=== PATIENT | female | born 1990 ===

== ENCOUNTER 2018-02-09 21:04 | Emergency (ER) | payer BC, MEDICAID, OTHER ==
[2018-02-09 21:05] VITALS: BMI 35.4
[2018-02-09] MEDS ORDERED: Sodium Chloride 0.9% 1,000 ML IV ONE (21:54)
--- NOTE | 2018-02-09 21:59 | C.PDOC ---
History Of Present Illness 27 y/o female presents to the ED complaining of epigastric pain that has been on and off for the past couple weeks. Patient states she was evaluated in the ED at [facility] in December, and told symptoms were related to her gall bladder. She was evaluated again last week, given something through the IV, and discharged home. The pain is now radiating into her back. Patient reports feeling nauseous, with chills. Otherwise she denies any vomiting, diarrhea, chest pain, SOB, or fever. Of note, patient is s/p gastric sleeve in 09/2017. Time Seen by Provider: 02/09/18 21:33 Chief Complaint (Nursing): Abdominal Pain History Per: Patient History/Exam Limitations: no limitations Onset/Duration Of Symptoms: Intermittent Episodes Current Symptoms Are (Timing): Still Present Location Of Pain/Discomfort: Epigastric Associated Symptoms: Chills, Nausea Past Medical History Reviewed: Historical Data, Nursing Documentation, Vital Signs Vital Signs: Last Vital Signs Temp 97.9 F 02/09/18 21:09 Pulse 69 02/09/18 21:09 Resp 18 02/09/18 21:09 BP 114/70 02/09/18 21:09 Pulse Ox 100 02/09/18 21:09 - Medical History PMH: Asthma, Depression, Pneumonia (05/24) Denies: HIV, Chronic Kidney Disease - [facility] Procedures EXCISION OF DUODENUM, ENDO, DIAGN (12/10/17) EXCISION OF STOMACH, ENDO, DIAGN (12/10/17) INDIVID PSYCHOTHERAP NEC (07/03/13) INTRODUCTION OF SERUM/TOX/VACCINE INTO MUSCLE, PERC APPROACH (12/10/17) OTHER GROUP THERAPY (07/03/13) Family History: States: Unknown Family Hx - Social History Hx Tobacco Use: Yes Hx Alcohol Use: No (denies) Hx Substance Use: No (denies) - Immunization History Hx Tetanus Toxoid Vaccination: No Hx Influenza Vaccination: Yes (2017) Hx Pneumococcal Vaccination: No Review Of Systems Constitutional: Positive for: Chills. Negative for: Fever Cardiovascular: Negative for: Chest Pain Respiratory: Negative for: Shortness of Breath Gastrointestinal: Positive for: Nausea, Abdominal Pain (epigastric). Negative for: Vomiting, Diarrhea, Hematochezia Physical Exam - Physical Exam Appears: Non-toxic, Other (Appears uncomfortable) Skin: Warm, Dry Head: Atraumatic, Normacephalic Eye(s): bilateral: Normal Inspection, PERRL, EOMI Oral Mucosa: Moist Neck: Normal ROM Chest: Symmetrical Cardiovascular: Rhythm Regular, No Murmur Respiratory: Normal Breath Sounds, No Rales, No Rhonchi, No Wheezing Gastrointestinal/Abdominal: Bowel Sounds (normal), Soft, Tenderness (to the epigastrium), No Distention, No Rebound Back: No CVA Tenderness Extremity: Bilateral: Atraumatic, Normal Color And Temperature Neurological/Psych: Oriented x3, Normal Speech ED Course And Treatment - Laboratory Results Result Diagrams: 02/09/18 22:27 02/09/18 22:27 O2 Sat by Pulse Oximetry: 100 (RA) Pulse Ox Interpretation: Normal Medical Decision Making Medical Decision Making: Initial Plan: --Blood work --Urinalysis --Urine HCG --IV fluids --Zofran 4 mg IVP --Morphine 2 mg IVP 23:25 - patient states she still in pain more morphine will ordered, discussed work up results with patient including her elevated AST and ALTs. Patient failed to mention initially she was seen 3 days ago and since then her AST/ALT have increased significantly. US scan ordered. 00:56 - Patient still complaining of pain, toradol was given. Patient will be signed out to Dr. Ayon pending US and reevaluation. Disposition Counseled Patient/Family Regarding: Studies Performed, Diagnosis - Disposition Disposition Time: 01:07 Condition: FAIR Forms: [facility] (Danish) - Clinical Impression Clinical Impression: Abdominal pain - Scribe Statement The provider has reviewed the documentation as recorded by the Wilbur Palacios Provider Attestation: All medical record entries made by the Vaneibjustine were at my direction and personally dictated by me. I have reviewed the chart and agree that the record accurately reflects my personal performance of the history, physical exam, medical decision making, and the department course for this patient. I have also personally directed, reviewed, and agree with the discharge instructions and disposition. Physician Patient Turnover Patient Signed Over To: Shine Ayon Handoff Comments: Pending US
[2018-02-09] MEDS ORDERED: Sodium Chloride 0.9% 1,000 ML ONE (22:13)
[2018-02-09 22:33] LABS: BASO % 0.5 % (0.0-2.0); EOS # 0.2 K/uL (0.0-0.7); EOS % 1.9 % (0.0-4.0); HEMOGLOBIN 14.2 g/dL (11.0-16.0); LYMPH # 1.3 K/uL (1.0-4.3); LYMPH % 15.8 % (20.0-40.0); MEAN CELL VOLUME 90.1 fL (81.0-99.0); MEAN CORPUSCULAR HEMOGLOBIN 30.1 pg (27.0-31.0); MEAN CORPUSCULAR HGB CONC 33.4 g/dL (33.0-37.0); MEAN PLATELET VOLUME 8.2 fL (7.2-11.7); MONO # 0.4 K/uL (0.0-0.8); MONO % 5.2 % (0.0-10.0); NEUT # 6.3 K/uL (1.8-7.0); NEUT % 76.6 % (50.0-75.0); NRBC % 0.1 % (0.0-2.0); RBC 4.72 Mil/uL (3.80-5.20); RED CELL DISTRIBUTION WIDTH 14.5 % (11.5-14.5); WHITE BLOOD COUNT 8.2 K/uL (4.8-10.8)
[2018-02-09 22:44] LABS: ALB/GLOB RATIO 1.4 (1.0-2.1); ALBUMIN 4.4 g/dL (3.5-5.0); ALT/SGPT 315 U/L (9-52); AST/SGOT 380 U/L (14-36); BLOOD UREA NITROGEN 10 mg/dL (7-17); CALCIUM 9.4 mg/dl (8.6-10.4); GFR NON-AFRICAN AMERICAN > 60; LIPASE 96 U/L (23-300)
[2018-02-09 22:53] LABS: SQUAMOUS EPITHIAL 8 /hpf (0-5); URINE BACTERIA RARE (<OCC); URINE BILIRUBIN NEGATIVE (NEGATIVE); URINE BLOOD NEGATIVE (NEGATIVE); URINE CLARITY Clear (Clear); URINE COLOR Amber (YELLOW); URINE GLUCOSE (UA) NORMAL (Normal); URINE HYALINE CAST 0-2 /lpf (0-2); URINE LEUKOCYTE ESTERASE NEG Leu/uL (Negative); URINE PROTEIN NEGATIVE (NEGATIVE)
[2018-02-09 22:56] LABS: HCG,QUALITATIVE URINE NEGATIVE (NEGATIVE)
[2018-02-10] MEDS ORDERED: Iodixanol 320 MG/ML 100 ML BOTTLE IV ONE (00:02)
[2018-02-10 03:37] VITALS: BP 118/77; PULSE 68; RESP 22; TEMP 98.2; O2SAT 98
--- NOTE | 2018-02-10 10:27 | US ---
Date of service: 02/10/2018 HISTORY: abd pain COMPARISON: The preliminary findings for this examination were reported by [facility] at 3:22 a.m. on 02/10/2018. There is concurrence of this report with the preliminary findings. TECHNIQUE: Sonographic evaluation of the abdomen. FINDINGS: LIVER: Measures 17.6 cm. Diffusely increased echogenicity of the liver parenchyma. Consistent with fatty infiltration. Smooth contour. No mass. No intrahepatic biliary ductal dilatation. GALLBLADDER: Cholelithiasis. No mural thickening. No pericholecystic fluid. Negative sonographic Owen sign. COMMON BILE DUCT: Measures 7 mm. This is just above the normal range though on accompanied by intrahepatic biliary dilatation. Please correlate with laboratory evaluation for possible biliary obstruction. PANCREAS: Unremarkable as visualized. No mass. No ductal dilatation. RIGHT KIDNEY: Measures 12.1cm. Normal echogenicity. No calculus, mass, or hydronephrosis. LEFT KIDNEY: Measures 10.7cm. Normal echogenicity. No calculus, mass, or hydronephrosis. SPLEEN: Normal in size and contour. No mass. AORTA: No aneurysmal dilatation. IVC: Unremarkable. OTHER FINDINGS: None. IMPRESSION: Fatty infiltration of the liver. Cholelithiasis without evidence of cholecystitis. Minimally dilated common bile duct of uncertain significance without associated intrahepatic biliary dilatation. Correlate with laboratory evaluation for possible biliary obstruction.
== END 2018-02-10 03:43 | disposition home or self-care (01) ==
LOC: SUPCPDRO 21:04 → C.ER 21:04
DX: K80.80 Other cholelithiasis without obstruction (principal); R94.5 Abnormal results of liver function studies; R10.9 Unspecified abdominal pain
CPT/HCPCS: 76700; 80053; 81001; 83690; 84703; 85025; 96361; 96374; 96375; 96376; 99284; J1885; J2270; J2405; J7030

== ENCOUNTER 2018-06-11 14:10 | Emergency (ER) | payer OTHER, MEDICAID | END 2018-06-11 15:28 | disposition home or self-care (01) | LOC: C.ER 14:10 ==

== ENCOUNTER 2018-07-20 00:16 | Emergency (ER) | payer MEDICAID, OTHER ==
[2018-07-20 00:30] VITALS: BMI 29.0
--- NOTE | 2018-07-20 00:55 | C.PDOC ---
History Of Present Illness 28 year old female presents with left flank pain radiating to the left lower abdomen. She also reports some constipation, last bowel movement was this morning with a lot of straining. Denies nausea, vomiting, or diarrhea. LMP was one week ago. Time Seen by Provider: 07/20/18 00:35 Chief Complaint (Nursing): Abdominal Pain History Per: Patient History/Exam Limitations: no limitations Onset/Duration Of Symptoms: Days Current Symptoms Are (Timing): Still Present Location Of Pain/Discomfort: Other (Left flank radiating to left lower abdomen) Quality Of Discomfort: Unable To Describe Associated Symptoms: Constipation. denies: Nausea, Vomiting, Diarrhea Exacerbating Factors: None Alleviating Factors: None Recent travel outside of the [place]: No Past Medical History Reviewed: Historical Data, Nursing Documentation, Vital Signs Vital Signs: Last Vital Signs Temp 98.3 F 07/20/18 00:30 Pulse 64 07/20/18 00:30 Resp 18 07/20/18 00:30 BP 111/72 07/20/18 00:30 Pulse Ox 100 07/20/18 00:30 - Medical History PMH: Asthma, Depression, Pneumonia (05/24) Denies: HIV, Chronic Kidney Disease - [facility] Procedures EXCISION OF DUODENUM, ENDO, DIAGN (12/10/17) EXCISION OF STOMACH, ENDO, DIAGN (12/10/17) INDIVID PSYCHOTHERAP NEC (07/03/13) INTRODUCTION OF SERUM/TOX/VACCINE INTO MUSCLE, PERC APPROACH (12/10/17) OTHER GROUP THERAPY (07/03/13) Family History: States: Unknown Family Hx - Social History Hx Tobacco Use: Yes Hx Alcohol Use: Yes (denies) Hx Substance Use: No (denies) - Immunization History Hx Tetanus Toxoid Vaccination: No Hx Influenza Vaccination: Yes (2018) Hx Pneumococcal Vaccination: No Review Of Systems Constitutional: Negative for: Fever, Chills Gastrointestinal: Positive for: Abdominal Pain (Left), Constipation. Negative for: Nausea, Vomiting, Diarrhea Genitourinary: Negative for: Dysuria, Hematuria Musculoskeletal: Positive for: Other (Left flank pain) Physical Exam - Physical Exam Appears: Non-toxic Skin: Normal Color, Warm Head: Atraumatic, Normacephalic Eye(s): bilateral: Normal Inspection Oral Mucosa: Moist Gastrointestinal/Abdominal: Soft, No Tenderness, Other (Multiple old small incision scars) Back: No CVA Tenderness Neurological/Psych: Oriented x3, Normal Speech ED Course And Treatment O2 Sat by Pulse Oximetry: 100 (Room air) Pulse Ox Interpretation: Normal - Other Rad Obstructive series X-Ray: Interpreted by Me, Viewed By Me Interpretation: Moderate stool, surgical sutures seen. Progress Note: Obstructive series and UA ordered, results were negative. Patient is resting comfortably in no acute distress, vitals are stable, will discharge with Rx and instructions to follow up with PMD. 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 - Scribe Statement The provider has reviewed the documentation as recorded by the Scribjustine Cavazos All medical record entries made by the Vaneibjustine were at my direction and personally dictated by me. I have reviewed the chart and agree that the record accurately reflects my personal performance of the history, physical exam, me dical decision making, and the department course for this patient. I have also personally directed, reviewed, and agree with the discharge instructions and disposition.
[2018-07-20 01:33] LABS: SQUAMOUS EPITHIAL 4 /hpf (0-5); URINE BACTERIA RARE (<OCC)
[2018-07-20 01:39] LABS: HCG,QUALITATIVE URINE NEGATIVE (NEGATIVE); URINE COLOR YELLOW (YELLOW)
[2018-07-20 01:40] LABS: URINE BILIRUBIN NEGATIVE (NEGATIVE); URINE BLOOD NEGATIVE (NEGATIVE); URINE CLARITY Clear (Clear); URINE GLUCOSE (UA) NEGATIVE (Normal)
[2018-07-20 01:43] LABS: URINE PROTEIN NEGATIVE (NEGATIVE); URINE UROBILINOGEN 0.2 mg/dL (0.2-1.0)
[2018-07-20 01:44] LABS: URINE LEUKOCYTE ESTERASE NEGATIVE Leu/uL (Negative)
[2018-07-20 03:16] VITALS: BP 110/70; PULSE 72; RESP 20; TEMP 98.1
[2018-07-20 04:20] VITALS: O2SAT 100
--- NOTE | 2018-07-20 07:55 | RAD ---
Date of service: 07/20/2018 PROCEDURE: Radiographs of the chest and abdomen (obstructive series) HISTORY: abdominal pain COMPARISON: No prior. TECHNIQUE: AP radiograph of the chest, with upright and supine radiographs of the abdomen. 3 views obtained. FINDINGS: CHEST: Lungs: Clear. Cardiovascular: Mild cardiomegaly. No pulmonary vascular congestion. No aortic atherosclerotic calcification present. Clip projecting near aortic knob-unchanged Pleura: No pleural fluid. No pneumothorax. Other findings: None. ABDOMEN AND PELVIS: Bowel: Moderate stool retention. Free air: None. Bones: Dextroscoliosis lumbar level Other findings: None. IMPRESSION: No acute cardiopulmonary pathology noted. No infiltrate. Mild cardiomegaly. No evidence of mechanical bowel obstruction. Moderate stool retention. Abdominal postsurgical changes-correlate clinically
== END 2018-07-20 03:09 | disposition home or self-care (01) ==
LOC: C.ER 00:16
DX: K59.00 Constipation, unspecified (principal); R10.32 Left lower quadrant pain